=== PATIENT | female | born 1995 | race African-American/Black ===

== ENCOUNTER 2024-09-20 15:06 | Emergency (ER) | payer OTHER, SELFPAY ==
[2024-09-20 15:07] VITALS: BP 111/70
[2024-09-20 15:34] LABS: % Basophils 0.3 % (0-2); % Eosinophils 1.8 % (0-6); % Lymphocytes 42.6 % (20.5-51.1); % Monocytes 6.2 % (1.7-9.3); % Neutrophils 49.1 % (42.2-75.2); Absolute Eosinophils 0.1 10^3/uL (0-0.7); Absolute Lymphocytes 1.6 10^3/uL (1.2-3.4); Absolute Monocytes 0.2 10^3/uL (0.1-0.6); Absolute Neutrophils 1.9 10^3/uL (1.4-6.5); Hematocrit 34.3 % (37.0-47.0); Hemoglobin 11.6 g/dL (12.0-16.0); Mean Corp Hgb Conc. 33.8 g/dL (33.0-37.0); Mean Corpuscular Hgb 30.1 pg (27.0-31.0); Mean Corpuscular Volume 88.9 fL (81.0-99.0); Mean Platelet Volume 11.2 fL (7.4-10.4); Nucleated Red Blood Cells % 0 %; Platelet Count 205 10^3/uL (130-400); Red Blood Cell Count 3.86 10^6/uL (4.20-5.40); Red Cell Dist. Width 12.4 % (11.5-14.5); White Blood Cell Count 3.9 10^3/uL (4.8-10.8)
[2024-09-20 15:37] LABS: Urine Albumin Trace (Neg - Trace); Urine Bilirubin 1+ (Negative); Urine Character Slightly Cloudy (Clear); Urine Color Amber; Urine Glucose Negative (Negative); Urine Ketone 2+ (Negative); Urine Leukocyte Trace (Negative); Urine Nitrite Negative (Negative); Urine Occult Blood 4+ (Negative); Urine Urobilinogen 1+ (Neg - 1+)
[2024-09-20 15:44] LABS: HCG, Serum Qualitative Screen Negative
[2024-09-20 15:49] LABS: ALT (SGPT) 19 U/L (0-35); AST (SGOT) 21 U/L (14-36); Albumin 4.4 g/dl (3.5-5.0); Alkaline Phosphatase 32 U/L (38-126); Blood Urea Nitrogen 10 mg/dl (7-17); Calcium 9.4 mg/dl (8.4-10.2); Carbon Dioxide 25 mmol/L (22-30); Chloride 105 mmol/L (98-107); Glucose 114 mg/dl (70-99); Lipase 46 U/L (23-300); Potassium 4.3 mmol/L (3.5-5.1); Sodium 140 mmol/L (135-145); Total Bilirubin 0.9 mg/dl (0.2-1.3); Total Protein 7.2 g/dl (6.3-8.2); eGFR > 60.00
[2024-09-20 16:00] LABS: Urine Mucus Many
[2024-09-20 16:01] LABS: Urine Red Blood Cell 50-60 /HPF (0-2)
--- NOTE | 2024-09-20 16:57 | ED.GENMED ---
History of Present Illness
General
Chief Complaint: Abdominal Pain
Source: patient and family (Mom at bedside)
Exam Limitations: none
Time Seen by Provider: 09/20/24 16:18
Nursing documentation reviewed up to this point in time: agreed with
History of Present Illness
History of Present Illness:
Patient is a 29-year-old female with history asthma presenting to the emergency department for evaluation of intermittent left flank pain over the past 8 days. At this time patient is asymptomatic. Patient states that she has been having left
flank/lower abdominal pain intermittently and noticing decreased urine production. Patient is urinating but reports a decreased frequency. Patient denies any dysuria or hematuria. Patient denies any nausea or vomiting. Bowel movements have been
normal. Patient denies any known fever, chest pain, or shortness of breath.
Patient was seen by her primary care provider and sent to the emergency department for further evaluation due to concern for possible kidney stone.
Patient reports recent diagnosis of unknown autoimmune disease for which she will be following with rheumatology. Patient sister does have lupus.
Past History
Past History
ED Past Medical History: Asthma
ED Past Surgical History: Gynecological (Ectopic)
Social History
Tobacco: Non-smoker
Alcohol: None
Drug: None
Personal: Single
Living: with family
Employment: Not employed
Family History
Family History: Other (Noncontributory)
Review of Systems
Review of Systems
Allergies reviewed?: Yes
All Other Systems: ROS reviewed and negative except as documented in HPI and ROS
Phy Exam
Physical Exam
Physical Exam:
Vitals: Patient's vital signs are stable. Afebrile
General: Patient is very well appearing, no acute distress
Skin: Warm and dry, no rashes or lesions
Head: Normocephalic, atraumatic
Eyes: Sclera nonicteric. EOMs intact. No nystagmus.
Throat: Protecting airway
Neck: Normal ROM, no cervical spine tenderness, no meningismus
Cardiac: Regular rate and rhythm, no murmurs.
Pulm: Normal respiratory effort, no wheezes, rales, rhonchi heard on exam.
Abdomen: Abdomen soft. Mild lower abdominal tenderness without rebound tenderness or guarding. No CVA tenderness
Extremities: No evidence of cyanosis or edema. Great distal pulses
Neuro: AAOx3. CN II-XII intact. No focal neurologic deficits.
Psychiatric: Normal affect.
Course
Orders/Labs/Results
Orders:
Orders
09/20/24 15:11
Test Result ONCE
09/20/24 15:26
Complete Blood Count/With Diff Urgent
Comprehensive Metabolic Panel Urgent
HCG, Serum Qualitative Screen Urgent
Lipase Urgent
Monotest Urgent
Comment: ADD ON
Urinalysis Reflex To Culture Urgent
Date Specimen was Collected: 09/20/24
Time Specimen was Collected: 15:12
Urine Microscopic Reflex Cult Urgent
09/20/24 16:54
Abdomen/Pelvis w/wo Contrast CT [CT Abd/pelvis W/wo Iv Cont] Urgent
Comment:
Reason For Exam: left flank pain; hematuria
0.9% Sodium Chloride 1000 ml [Nss] 1,000 ml IV BOLUS
Ketorolac [Toradol] 15 mg IV NOW STA
09/20/24 18:23
Add On- LAB Urgent
Tests Added?: monospot
Abnormal Lab Results
09/20/24
15:26
WBC 3.9 L 10^3/uL
(4.8-10.8)
RBC 3.86 L 10^6/uL
(4.20-5.40)
Hgb 11.6 L g/dL
(12.0-16.0)
Hct 34.3 L %
(37.0-47.0)
MPV 11.2 H fL
(7.4-10.4)
Glucose 114 H mg/dl
(70-99)
Alkaline Phosphatase 32 L U/L
(38-126)
Urine Ketones 2+ A
(Negative)
Ur Occult Blood Reflex 4+ A
(Negative)
Urine Bilirubin 1+ A
(Negative)
Leukocyte Esterase Rfl Trace A
(Negative)
Urine RBC 50-60 A /HPF
(0-2)
Monoscreen Positive A
(Negative)
09/20/24 15:26
09/20/24 15:26
Vital Signs
Initial and Last Documented VS:
Initial Vital Signs
Temp Pulse Resp BP Pulse Ox
98.2 F 86 16 111/70 97
09/20/24 15:07 09/20/24 15:07 09/20/24 15:07 09/20/24 15:07 09/20/24 15:07
Last Documented Vital Signs
Temp Pulse Resp BP Pulse Ox
97.9 F 66 16 105/69 100
09/20/24 17:06 09/20/24 18:51 09/20/24 18:51 09/20/24 18:51 09/20/24 18:51
MDM/Problems Addressed
Differential Diagnosis Includes:
Not limited to: Kidney stone, UTI, pyelonephritis, ectopic , ovarian cyst, appendicitis, diverticulitis, viral illness, etc.
MDM/Problems Addressed:
29 year old female presenting with a week of intermittent left flank pain and decreased urine output by history. No fevers, anorexia, nausea/vomiting. Sent by PCP to r/o kidney stone vs gallbladder etiology. At time of exam patient resting
comfortably and asymptomatic. Vitals stable - afebrile. Patient very well appearing in no apparent distress. Benign abdominal exam, no CVA tenderness. Differential broad although considerations include kidney stone, UTI, pyelonephritis, viral
illness, ectopic , etc. Lower suspicion for gallbladder etiology as patient without any right sided pain by history or on exam. Will check basic labs, HCG, UA. Will check CT w/wo contrast for stone search / eval for other inflammatory
changes in abdomen. Will give IVF, toradol.
Labs noted. Mild leukopenia. No evidence of renal insufficiency. Urine with RBCs although patient is on her menses - no evidence of UTI. CT without acute findings. Patient remains essentially asymptomatic in emergency department. Did have patient
void and obtain postvoid residual with 0cc in bladder. No evidence of urinary retention. Unsure etiology of symptoms although possibly passed kidney stone. Feel patient is stable for discharge with return precautions, urology f/u if symptoms
persist. Case discussed with attending physician.
Chronic conditions affecting care:
N/A
Acute Exacerbation and/or Progression of Chronic Illness:
N/A
*Radiology
Radiology exam reviewed: preliminary read by ED provider (No acute abnormality) and radiology read reviewed
*Pulse Oximetry
Patient hypoxic: no
*EKG
Interpreted by ED Provider?: NA
*Assembler Seat Interpretation
Rate: Assembler Seat- N/A
*Critical Care Note
Total Time (30-74mins, 75-104mins- exclusive of procedures): Not Applicable
Update Note
Update Note:
Update: Patient was discharged prior to results of monotest. This was found to be positive. No evidence of splenomegaly on CT. Did call and speak with patient to make aware of results. Discussed viral, supportive care, etc. Possibly may exam some of
the nondescript abdominal pain although shoudl still follow with urology regarding these symptoms. Advised to avoid contact sports and f/u with PCP. Return precautions discussed.
ED Attending Note
-
Portions of this chart may have been created with voice recognition software.� Occasional wrong word or��sound alike� substitutions may have occurred due to the inherent limitations of voice recognition software.
Discharge Plan
Departure
Patient Disposition: Home (Routine Discharge)
Date of Disposition: 09/20/24
Time of Disposition: 19:02
Patient with high blood pressure during this ER visit?: No
Condition: Good
Covid-19: Not Applicable
Discharge Problem:
Hx of left flank pain
Instructions: Flank Pain (DC)
Prescriptions:
No Action
albuterol sulfate 18 GM HFA aerosol inhaler
18 gm IH Q4HPRN PRN (Reason: cough/sob)
Referrals:
Sherwin Luu MD [Family Provider] -
Kyle Cerna MD [Active] - Call in 1-3 days for appt
Activity Restrictions/Additional Instructions:
RETURN TO THE EMERGENCY DEPARTMENT WITH ANY FEVERS, SEVERE ABDOMINAL/BACK PAIN, INTRACTABLE VOMITING, INABILITY TO URINATE, SHORTNESS OF BREATH, WORSENING IN CURRENT SYMPTOMS OR ANY OTHER CONCERNS
-As discussed�your imaging formed in the emergency department did not show any evidence of an obstructing kidney stone or gallbladder disorder. Your urine did not appear infected.
-As discussed�it is important stay well-hydrated. Tylenol/Motrin at home as needed for discomfort.
-You should follow-up with urology for further evaluation/management if urinary symptoms persist. The contact information has been provided for you above.
Monitor your symptoms closely and return to the emergency department any acute worsening/new symptom
Interventions
Interventions:
*Risk Screen - Suicide Last Done: 09/20/24 17:05
*General Assessment Last Done: 09/20/24 17:05
*Neglect/Abuse Screening Last Done: 09/20/24 17:05
*ED COVID-19 Vaccine History Last Done: 09/20/24 17:05
*Nursing Disposition Last Done: 09/20/24 19:15
KF-Sxssur-Wpocghpmoz Assessment Last Done: 09/20/24 17:08
Discharge Date and Time
Discharge Date/Time: 09/20/24 19:25
Print Language: [id number]
[2024-09-20 17:06] VITALS: BP 100/61; BMI 26.1
[2024-09-20] MEDS: NSS 1000 IV (17:14)
[2024-09-20] MEDS: TORADOL 15 MG IV (17:15)
[2024-09-20 18:51] VITALS: BP 105/69
[2024-09-20 19:15] LABS: Monotest Positive (Negative)
== END 2024-09-20 19:25 | disposition home or self-care (01) ==
LOC: EMR 15:06
PROVIDERS: Emergency Medicine; EMERGENCY PHYSICIAN Emergency Medicine; FAMILY PHYSICIAN Family Medicine
DX: R10.30 Lower abdominal pain, unspecified (principal); J45.909 Unspecified asthma, uncomplicated
CPT/HCPCS: 99285; 96374; 96361; 51798; 74178; 80053; 81003; 81015; 83690; 84703; 85025; 86308; Q9967